=== PATIENT | female | born 1975 | race Caucasian/White ===

== ENCOUNTER 2018-01-31 07:38 | Inpatient (IN) | payer OTHER ==
[~2018-01-31] VITALS: Ht 177.8 cm; Wt 70.1 kg
[2018-01-31] MEDS ORDERED: PANTOPRAZOLE 40 MG IV IVPush ONE (08:30)
[2018-01-31] MEDS ORDERED: SODIUM CHLORIDE 0.9% 1,000ML IVBOLUS ONE (08:30)
[2018-01-31] MEDS ORDERED: ONDANSETRON ODT 4 MG PO ONE (08:30)
[2018-01-31] MEDS ORDERED: SODIUM CHLORIDE FLUSH 10ML SYR IVF ONE (08:30)
[2018-01-31 08:40] LABS: MEAN CORPUSCULAR HEMOGLOBIN 33.6 pg (27.0-34.8); MEAN CORPUSCULAR HGB CONC 33.4 g/dL (32.4-35.8); MEAN CORPUSCULAR VOLUME 100.7 fL (80-100); MEAN PLATELET VOLUME 8.1 fL (7.4-10.4); PLATELET COUNT 270 x10^3/uL (130-400); RED BLOOD COUNT 3.11 x10^6/uL (3.82-5.3); RED CELL DISTRIBUTION WIDTH 13.2 % (9.6-15.2)
[2018-01-31] MEDS ORDERED: PANTOPRAZOLE 40 MG IV ONE (08:59)
[2018-01-31] MEDS ORDERED: ONDANSETRON ODT 4 MG ONE (08:59)
[2018-01-31 09:07] LABS: ALANINE AMINOTRANSFERASE 22 U/L (12-78); ALBUMIN 3.1 g/dL (3.4-5.0); ANION GAP 7 mmol/L (5-15); CALCIUM 7.9 mg/dL (8.5-10.1); CHLORIDE 113 mmol/L (98-107); CREATININE 0.66 mg/dL (0.55-1.02)
[2018-01-31 09:08] LABS: ALKALINE PHOSPHATASE 41 U/L (45-117); BILIRUBIN,TOTAL 0.3 mg/dL (0.2-1.0); TOTAL PROTEIN 5.7 g/dL (6.4-8.2)
[2018-01-31 09:13] LABS: BASOPHILS # (AUTO) 0.02 x10^3/uL (0-0.1); BASOPHILS % (AUTO) 0 % (0-1); EOSINOPHILS # (AUTO) 0.01 x10^3/uL (0-0.4); EOSINOPHILS % (AUTO) 0 % (1-7); LYMPHOCYTES # (AUTO) 0.47 x10^3/uL (1-3.4); LYMPHOCYTES % (AUTO) 4 % (22-44); MD SCAN; MONOCYTES # (AUTO) 0.06 x10^3/uL (0.2-0.8); MONOCYTES % (AUTO) 1 % (2-9); NEUTROPHILS % (AUTO) 96 % (42-75)
[2018-01-31] MEDS ORDERED: TRAM50TA2 PO (10:44)
[2018-01-31] MEDS ORDERED: hydrALAzine 20 MG/ML, 1ML IVPush PRN (11:00)
[2018-01-31] MEDS ORDERED: ONDANSETRON 2MG/ML, 2ML IVPush PRN (11:00)
[2018-01-31 11:01] VITALS: BP 104/59
[2018-01-31] MEDS ORDERED: morphine SULFATE 10 MG/ML, 1ML IVPush PRN (11:30)
[2018-01-31] MEDS: NS + 20MEQ KCL 1,000 ML IV SCH ×2 (11:37→23:31)
[2018-01-31] MEDS: ACETAMINOPHEN 325 MG TABLET PO PRN ×2 (11:39→16:59)
[2018-01-31 12:32] LABS: INTERNATIONAL NORMALIZED RATIO 1.03 (0.93-1.1); PROTHROMBIN TIME 10.6 Seconds (9.6-11.5)
[2018-01-31 13:08] LABS: FOLATE LEVEL 5.2 ng/mL (3.1-17.5)
[2018-01-31 13:22] LABS: MICROSCOPIC NOT IND
[2018-01-31] MEDS ORDERED: OMNIPAQUE 350 MG/ML, 100ML BOTTLE ONE (13:47)
[2018-01-31 14:08] VITALS: BP 100/62
[2018-01-31 19:41] VITALS: BP 90/51
[2018-01-31] MEDS: PANTOPRAZOLE 40 MG IV IVPush SCH (19:52)
[2018-02-01 01:49] VITALS: BP 100/64
[2018-02-01 04:29] LABS: BASOPHILS # (AUTO) 0.02 x10^3/uL (0-0.1); BASOPHILS % (AUTO) 0 % (0-1); EOSINOPHILS # (AUTO) 0.13 x10^3/uL (0-0.4); EOSINOPHILS % (AUTO) 2 % (1-7); LYMPHOCYTES # (AUTO) 1.05 x10^3/uL (1-3.4); LYMPHOCYTES % (AUTO) 19 % (22-44); MD NO; MEAN CORPUSCULAR HEMOGLOBIN 34.5 pg (27.0-34.8); MEAN CORPUSCULAR VOLUME 101.4 fL (80-100); MEAN PLATELET VOLUME 7.9 fL (7.4-10.4); MONOCYTES # (AUTO) 0.28 x10^3/uL (0.2-0.8); MONOCYTES % (AUTO) 5 % (2-9); NEUTROPHILS % (AUTO) 73 % (42-75); PLATELET COUNT 199 x10^3/uL (130-400); RED BLOOD COUNT 2.51 x10^6/uL (3.82-5.3); RED CELL DISTRIBUTION WIDTH 13.6 % (9.6-15.2)
[2018-02-01 04:37] LABS: ALBUMIN 2.8 g/dL (3.4-5.0); ANION GAP 5 mmol/L (5-15); CALCIUM 7.7 mg/dL (8.5-10.1); CHLORIDE 119 mmol/L (98-107)
[2018-02-01 04:40] LABS: ALANINE AMINOTRANSFERASE 16 U/L (12-78); ALKALINE PHOSPHATASE 29 U/L (45-117); BILIRUBIN,TOTAL 0.4 mg/dL (0.2-1.0); CREATININE 0.65 mg/dL (0.55-1.02); TOTAL PROTEIN 4.9 g/dL (6.4-8.2)
[2018-02-01 08:00] VITALS: BP 93/61
[2018-02-01] MEDS: PANTOPRAZOLE 40 MG IV IVPush SCH ×2 (09:07→20:48)
[2018-02-01] MEDS ORDERED: MIDAZOLAM 1 MG/ML, 5ML ONE (09:21)
[2018-02-01] MEDS ORDERED: FENTANYL PF 100 MCG/2ML ONE (09:21)
[2018-02-01] MEDS ORDERED: EPINEPHRINE SYRINGE 0.1 MG/ML, 10ML ONE (10:39)
[2018-02-01 10:57] VITALS: BP 97/58
[2018-02-01 11:46] VITALS: BP 98/57
[2018-02-01 13:45] VITALS: BP 99/61
[2018-02-01 19:23] VITALS: BP 105/65
[2018-02-01] MEDS: ACETAMINOPHEN 325 MG TABLET PO PRN (22:12)
[2018-02-02 01:13] VITALS: BP 98/60
[2018-02-02 07:22] VITALS: BP 103/61
[2018-02-02] MEDS: PANTOPRAZOLE 40 MG IV IVPush SCH (07:43)
[2018-02-02] MEDS ORDERED: OMEP-110 PO (13:05)
== END 2018-02-02 14:19 | disposition home or self-care (01) | DRG 378 ==
LOC: ED 10:12 → EDIP 10:13 → ED 10:16 → EDIP 10:32 → 3NW 10:32
PROVIDERS: ADMIT Internal Medicine Pulmonary Disease; ATTEND Family Medicine
PROC: 3E0G8GC Introduction of Other Therapeutic Substance into Upper GI, Via Natural or Artificial Opening Endoscopic (ICD-10-PCS; principal; 2018-02-01 10:00)
DX: K25.4 Chronic or unspecified gastric ulcer with hemorrhage (principal); E44.0 Moderate protein-calorie malnutrition; D53.9 Nutritional anemia, unspecified; G89.29 Other chronic pain; D72.829 Elevated white blood cell count, unspecified; E53.8 Deficiency of other specified B group vitamins; F12.90 Cannabis use, unspecified, uncomplicated; I95.1 Orthostatic hypotension; Z82.49 Family history of ischemic heart disease and other diseases of the circulatory system; Z68.22 Body mass index [BMI] 22.0-22.9, adult; R73.9 Hyperglycemia, unspecified
CPT/HCPCS: 36415; 74177; 80053; 81003; 82607; 82728; 82746; 83540; 83550; 84466; 84703; 85014; 85018; 85025; 85610; 85730; 86850; 86900; 93005; 96361; 96374; J2250; J2405; J3010; J3480; Q0162; Q9967; C9113; J2270; J7030